=== PATIENT | male | born 1990 | race Caucasian/White ===

== ENCOUNTER 2020-07-22 11:56 | Inpatient (IN) ==
[2020-07-22 12:28] LABS: Basophils % 0.6 %; Eosinophils # 0.1 K/mcL (0.0-0.6); Eosinophils % 1.1 %; Hematocrit 49.1 % (37.5-50.1); Hemoglobin 17.1 g/dL (12.9-16.9); Immature Granulocytes % 0.3 % (0-4); Mean Corpuscular HGB Conc 34.8 g/dL (31.6-35.5); Mean Corpuscular Hemoglobin 30.6 pg (28.0-33.3); Mean Corpuscular Volume 87.8 fL (83.0-100.0); Mean Platelet Volume 9.6 fL (9.4-12.4); Monocytes # 0.5 K/mcL (0.0-1.3); Monocytes % 7.1 %; Platelet Count 225 K/mcL (140-400); Red Blood Count 5.59 M/mcL (4.19-5.50); Red Cell Distribution Width 12.1 % (11.5-14.5); Segmented Neutrophils % 60.9 %; White Blood Count 6.5 K/mcL (4.3-11.1)
[2020-07-22 12:44] LABS: Estimated Average Glucose 117 mg/dl; Hemoglobin A1C 5.7 %
[2020-07-22 12:46] LABS: Acetaminophen < 10 mcg/mL (10-20); BUN/Creatinine Ratio 12 (6-26); Blood Urea Nitrogen 12 mg/dL (6-20); Calcium 9.9 mg/dL (8.6-10.3); Carbon Dioxide 26 mEq/L (23-29); Chloride 106 mEq/L (98-107); Cholesterol 211 mg/dL (< 200); Ethanol < 10 mg/dL (Less than 10); Glucose 115 mg/dL (70-105); HDL Cholesterol 35 mg/dL (40-59); LDL Cholesterol,Calculated 155 mg/dL (< 100); Osmolality,Calculated 289 (280-300); Potassium 3.6 mEq/L (3.5-5.1); Salicylate < 2.5 mg/dL (15.0-30.0); Sodium 139 mEq/L (136-145); Triglycerides 103 mg/dL (< 150); eGFR For African Americans > 60 (> 60); eGFR For Non-African Americans > 60 (> 60)
[2020-07-22 12:59] LABS: Bilirubin,Urine Negative (Negative); Blood,Urine Trace (Negative); Clarity,Urine Clear (Clear); Color,Urine Light-Yellow (Yellow); Glucose,Urine (UA) Normal (Normal); Ketones,Urine Negative (Negative); Leukocyte Esterase,Urine Negative (Negative); Mucus,Urine Few per lpf (None-Few); Nitrite,Urine Negative (Negative); PH,Urine 6.5 pH Units (5.0-8.0); Protein,Urine Negative (Neg-Trace); RBC,Urine 0-3 per hpf (0-3); Specific Gravity,Urine 1.012 (1.010-1.025); Squamous Epithelial Cell,Urine Few per hpf (None-Few); Urobilinogen,Urine Normal (Normal); WBC,Urine 0-3 per hpf (0-3)
[2020-07-22 13:15] LABS: Amphetamine Screen,Urine Negative ng/mL (Cutoff=1000); Barbiturate Screen,Urine Negative ng/mL (Cutoff=200); Benzodiazepines Screen,Urine Negative ng/mL (Cutoff=200); Cannabinoid Screen,Urine Negative ng/mL (Cutoff = 50); Cocaine Screen,Urine Negative ng/mL (Cutoff= 300); Opiate Screen,Urine Negative ng/mL (Cutoff=300); Phencyclidine Screen,Urine Negative ng/mL (Cutoff=25)
[2020-07-22] MEDS ORDERED: traZODone 50 MG TABLET PO PRN (17:10)
[2020-07-22] MEDS ORDERED: Ibuprofen 400 MG TABLET PO PRN (17:10)
[2020-07-22] MEDS ORDERED: *HR* LORazepam 1 MG TABLET PO PRN (17:10)
[2020-07-22] MEDS ORDERED: Haloperidol Lactate 5 MG/ML VIAL IM PRN (17:10)
[2020-07-22] MEDS ORDERED: MOM Conc 10 ML UD.LIQ PO PRN (17:10)
[2020-07-22] MEDS ORDERED: haloperidoL 5 MG TABLET PO PRN (17:10)
[2020-07-22] MEDS ORDERED: *HR* LORazepam 2 MG/ML VIAL IM PRN (17:10)
[2020-07-22] MEDS ORDERED: Mag Hydrox/Al Hydrox/Simeth 30 ML UDC PO PRN (17:10)
[2020-07-22] MEDS ORDERED: hydrOXYzine pamoate 25 MG CAPSULE PO PRN (17:10)
[2020-07-22] MEDS: clonazePAM 1 MG TABLET PO PRN (21:54)
[2020-07-23] MEDS: PARoxetine 20 MG TABLET PO SCH (09:25)
[2020-07-23] MEDS: clonazePAM 1 MG TABLET PO PRN ×2 (09:26→20:56)
[2020-07-23] MEDS: ARIPiprazole 5 MG TABLET PO SCH (12:23)
[2020-07-24] MEDS: PARoxetine 20 MG TABLET PO SCH (08:27)
[2020-07-24] MEDS: ARIPiprazole 5 MG TABLET PO SCH (08:27)
[2020-07-24] MEDS: clonazePAM 1 MG TABLET PO PRN (08:29)
[2020-07-24 09:03] VITALS: BP 116/84
== END 2020-07-24 12:15 | disposition home or self-care (01) | DRG 881 ==
LOC: 1ANU 11:56 → EMEROOARM 11:56 → 1ANU 16:21
PROVIDERS: ADMIT Psychiatry & Neurology Psychiatry; ATTEND Psychiatry & Neurology Psychiatry